=== PATIENT | female | born 1945 | race African-American/Black ===

== ENCOUNTER 2019-02-17 18:42 | Emergency (ER) | payer MEDICARE, MEDICAID ==
[~2019-02-17] VITALS: Ht 162.6 cm; Wt 60.0 kg
[2019-02-17 18:43] VITALS: BP 132/76
[2019-02-17] MEDS ORDERED: IBUPROFEN 400MG TABLET PO ONE (20:15)
== END 2019-02-17 23:37 | disposition home or self-care (01) ==
LOC: ER 18:42
DX: S20.211A Contusion of right front wall of thorax, initial encounter (principal); F17.210 Nicotine dependence, cigarettes, uncomplicated; W22.8XXA Striking against or struck by other objects, initial encounter; Y93.89 Activity, other specified; Y92.89 Other specified places as the place of occurrence of the external cause; Y99.8 Other external cause status
CPT/HCPCS: 71101; 72170; 99283

== ENCOUNTER 2021-04-18 15:33 | Inpatient (IN) | payer MEDICARE, MEDICAID ==
[~2021-04-18] VITALS: Ht 162.6 cm; Wt 56.3 kg
[2021-04-18] MEDS ORDERED: IOHEXOL-350 100 ML BOTTLE ONE (16:47)
[2021-04-18 17:53] LABS: BASOPHILS % 0.5 % (0.0-2.0); EOSINOPHILS % 0.4 % (0.0-5.0); HEMATOCRIT. 39.4 % (36.0-48.0); HEMOGLOBIN. 13.2 g/dL (12.0-16.0); MEAN CORPUSCULAR HEMOGLOBIN 30.9 pg (28.0-32.0); MEAN CORPUSCULAR VOLUME 92.1 fL (81.0-99.0); MEAN PLATELET VOLUME 7.2 fl (7.4-10.4); NEUTROPHILS % 70.1 % (40.0-76.0); PLATELET 291 x1000/uL (130-400); RED BLOOD CELL COUNT 4.28 mill/uL (4.2-5.4); RED CELL DISTRIBUTION WIDTH 13.2 % (11.6-14.6)
[2021-04-18 17:59] LABS: CHLORIDE 107 mEq/L (98-107)
[2021-04-18 18:04] LABS: ETHANOL BLOOD < 10 mg/dL
[2021-04-18 18:09] LABS: CREATINE KINASE 168 IU/L (26-192)
[2021-04-18] MEDS ORDERED: SODIUM CHLORIDE 0.9% 500 ML IV ONE (19:00)
[2021-04-18 20:16] LABS: CLARITY URINE CLEAR (CLEAR); COLOR URINE YELLOW (YELLOW); KETONES URINE NEGATIVE (NEGATIVE); LEUKOCYTE ESTERASE URINE 1+ (NEGATIVE); NITRITE URINE POSITIVE (NEGATIVE); OCCULT BLOOD URINE TRACE (NEGATIVE); PH URINE 7.5 (4.5-8.0); PROTEIN URINE NEGATIVE (NEGATIVE); SPECIFIC GRAVITY URINE 1.035 (1.005-1.030); UROBILINOGEN URINE 0.2 E.U./dL (0.2-1.0)
[2021-04-18] MEDS ORDERED: CEFTRIAXONE 1 G PREMIX 50 ML IV ONE (20:30)
[2021-04-18 20:54] LABS: *AMPHETAMINES SCREEN URINE NEGATIVE (NEGATIVE); *BARBITURATES SCREEN URINE NEGATIVE (NEGATIVE); *BENZODIAZEPINES SCREEN URINE NEGATIVE (NEGATIVE)
[2021-04-18 20:55] LABS: *COCAINE SCREEN URINE NEGATIVE (NEGATIVE); CANNABINOID URINE SCREEN NEGATIVE (NEGATIVE); METHADONE URINE SCREEN NEGATIVE (NEGATIVE); OPIATES URINE SCREEN NEGATIVE (NEGATIVE); PHENCYCLIDINE URINE SCREEN NEGATIVE (NEGATIVE)
[2021-04-19] MEDS ORDERED: MAGNESIUM/ALUMINUM HYDROXIDE/SIMETHICONE 30ML UDC PO PRN
[2021-04-19] MEDS ORDERED: ONDANSETRON HCL 4MG/2ML INJ IV PRN
[2021-04-19] MEDS ORDERED: HYDROCODONE/ACETAMINOPHEN 5/325MG TABLET PO PRN
[2021-04-19] MEDS ORDERED: CLONIDINE 0.1MG TABLET PO PRN
[2021-04-19] MEDS ORDERED: ACETAMINOPHEN 325MG TABLET PO PRN
[2021-04-19] MEDS ORDERED: IPRATROPIUM/ALBUTEROL 0.5-3(2.5)MG/3ML NEB NEB PRN
[2021-04-19] MEDS ORDERED: CEFTRIAXONE 1 G PREMIX 50 ML IV SCH
[2021-04-19] MEDS ORDERED: DOCUSATE SODIUM 100MG CAPSULE PO PRN
[2021-04-19] MEDS: ENOXAPARIN 40MG/0.4ML SYR SUBCUT SCH ×2 (00:50→23:16)
[2021-04-19 04:29] LABS: BASOPHILS % 0.3 % (0.0-2.0); EOSINOPHILS % 1.1 % (0.0-5.0); HEMATOCRIT. 41.2 % (36.0-48.0); HEMOGLOBIN. 13.8 g/dL (12.0-16.0); LYMPHOCYTES % 17.5 % (20.0-50.0); MEAN CORPUSCULAR HEMOGLOBIN 30.9 pg (28.0-32.0); MEAN CORPUSCULAR VOLUME 92.4 fL (81.0-99.0); MEAN PLATELET VOLUME 7.1 fl (7.4-10.4); MONOCYTES % 8.6 % (2.0-8.0); NEUTROPHILS % 72.5 % (40.0-76.0); PLATELET 281 x1000/uL (130-400); RED BLOOD CELL COUNT 4.46 mill/uL (4.2-5.4); RED CELL DISTRIBUTION WIDTH 13.2 % (11.6-14.6)
[2021-04-19 04:52] LABS: CREATINE KINASE MB FRACTION 3.4 ng/mL (0.5-3.6)
[2021-04-19 11:06] VITALS: BP 160/89
[2021-04-19 12:00] VITALS: BP 166/67
[2021-04-19 16:00] VITALS: BP 132/75
[2021-04-19] MEDS ORDERED: NALOXONE HCL 0.4MG/ML VIAL IV PRN (16:45)
[2021-04-19] MEDS: ASPIRIN 81MG EC TABLET PO SCH (17:46)
[2021-04-19 19:54] LABS: CREATINE KINASE 246 IU/L (26-192)
[2021-04-19 19:55] LABS: CREATINE KINASE MB FRACTION 2.5 ng/mL (0.5-3.6)
[2021-04-19 20:13] VITALS: BP 142/73
[2021-04-19 22:55] LABS: T4 FREE 1.01 ng/dL (0.76-1.46)
[2021-04-19] MEDS: ATORVASTATIN CALCIUM 20MG TABLET PO SCH (23:16)
[2021-04-19] MEDS: CEFTRIAXONE 1,000 MG in DEXTROSE 5% WATER 50 ML IV SCH (23:16)
[2021-04-19 23:21] LABS: VITAMIN B12 SERUM 851 pg/mL (211-911)
[2021-04-19 23:23] LABS: FOLIC ACID (FOLATE) SERUM > 20.00 ng/mL (>5.38)
[2021-04-19 23:56] VITALS: BP 125/68
[2021-04-20 04:00] VITALS: BP 133/66
[2021-04-20 08:00] VITALS: BP 118/78
[2021-04-20] MEDS: ASPIRIN 81MG EC TABLET PO SCH (08:34)
[2021-04-20 12:00] VITALS: BP 115/67
[2021-04-20 12:03] LABS: BASOPHILS % 0.5 % (0.0-2.0); EOSINOPHILS % 1.3 % (0.0-5.0); HEMATOCRIT. 38.9 % (36.0-48.0); LYMPHOCYTES % 20.4 % (20.0-50.0); MEAN CORPUSCULAR HEMOGLOBIN 30.4 pg (28.0-32.0); MEAN CORPUSCULAR VOLUME 91.2 fL (81.0-99.0); MEAN PLATELET VOLUME 7.3 fl (7.4-10.4); MONOCYTES % 7.5 % (2.0-8.0); NEUTROPHILS % 70.3 % (40.0-76.0); PLATELET 287 x1000/uL (130-400); RED BLOOD CELL COUNT 4.27 mill/uL (4.2-5.4); RED CELL DISTRIBUTION WIDTH 13.3 % (11.6-14.6)
[2021-04-20 16:00] VITALS: BP 155/74
[2021-04-20 20:00] VITALS: BP 127/75
[2021-04-20 21:01] VITALS: BP 110/48
[2021-04-20] MEDS: ATORVASTATIN CALCIUM 20MG TABLET PO SCH (21:51)
[2021-04-20] MEDS: CEFTRIAXONE 1,000 MG in DEXTROSE 5% WATER 50 ML IV SCH (21:52)
[2021-04-20] MEDS: ENOXAPARIN 40MG/0.4ML SYR SUBCUT SCH (21:52)
[2021-04-21] VITALS: BP 127/75
[2021-04-21 04:00] VITALS: BP 113/59
[2021-04-21 08:00] VITALS: BP 111/73
[2021-04-21] MEDS: ASPIRIN 81MG EC TABLET PO SCH (09:00)
[2021-04-21 20:00] VITALS: BP 111/67
[2021-04-21] MEDS: ATORVASTATIN CALCIUM 40MG TABLET PO SCH (21:00)
[2021-04-21] MEDS: ENOXAPARIN 40MG/0.4ML SYR SUBCUT SCH (23:10)
[2021-04-21] MEDS: CEFTRIAXONE 1,000 MG in DEXTROSE 5% WATER 50 ML IV SCH (23:10)
[2021-04-22] VITALS: BP 127/73
[2021-04-22 04:00] VITALS: BP 136/67
[2021-04-22 06:11] LABS: BASOPHILS % 0.7 % (0.0-2.0); EOSINOPHILS % 0.9 % (0.0-5.0); HEMATOCRIT. 37.3 % (36.0-48.0); HEMOGLOBIN. 12.4 g/dL (12.0-16.0); LYMPHOCYTES % 28.8 % (20.0-50.0); MEAN CORPUSCULAR HEMOGLOBIN 30.7 pg (28.0-32.0); MEAN CORPUSCULAR VOLUME 92.1 fL (81.0-99.0); MEAN PLATELET VOLUME 7.5 fl (7.4-10.4); MONOCYTES % 8.8 % (2.0-8.0); NEUTROPHILS % 60.8 % (40.0-76.0); PLATELET 296 x1000/uL (130-400); RED BLOOD CELL COUNT 4.05 mill/uL (4.2-5.4); RED CELL DISTRIBUTION WIDTH 13.2 % (11.6-14.6)
[2021-04-22 08:00] VITALS: BP 141/70
[2021-04-22] MEDS: ASPIRIN 81MG EC TABLET PO SCH (08:22)
[2021-04-22 12:00] VITALS: BP 149/78
[2021-04-22] MEDS: ENOXAPARIN 60MG/0.6ML SYR SUBCUT SCH ×2 (13:52→22:05)
[2021-04-22 16:00] VITALS: BP 130/85
[2021-04-22 20:00] VITALS: BP 130/91
[2021-04-22] MEDS: ATORVASTATIN CALCIUM 40MG TABLET PO SCH (21:00)
[2021-04-23] VITALS: BP 123/56
[2021-04-23 04:00] VITALS: BP 138/68
[2021-04-23 08:00] VITALS: BP_SYST 116; BP_SYST 118; BP_DIAS 54; BP_DIAS 65
[2021-04-23] MEDS: ASPIRIN 81MG EC TABLET PO SCH (08:32)
[2021-04-23] MEDS: ENOXAPARIN 60MG/0.6ML SYR SUBCUT SCH ×2 (08:32→20:01)
[2021-04-23 12:00] VITALS: BP 120/62
[2021-04-23] MEDS: ATORVASTATIN CALCIUM 40MG TABLET PO SCH (13:52)
[2021-04-23] MEDS ORDERED: ATORVASTATIN CALCIUM 40MG TABLET PO SCH ×2 (14:00)
[2021-04-23 20:00] VITALS: BP 125/86
[2021-04-24] VITALS: BP 107/59
[2021-04-24 04:00] VITALS: BP 130/73
[2021-04-24 08:00] VITALS: BP 112/67
[2021-04-24] MEDS: ENOXAPARIN 60MG/0.6ML SYR SUBCUT SCH ×2 (09:12→21:00)
[2021-04-24] MEDS: ASPIRIN 81MG EC TABLET PO SCH (09:12)
[2021-04-24] MEDS: ATORVASTATIN CALCIUM 40MG TABLET PO SCH (09:12)
[2021-04-24 12:00] VITALS: BP 106/62
[2021-04-24 16:00] VITALS: BP 105/60
[2021-04-24 17:25] LABS: BASOPHILS % 0.6 % (0.0-2.0); EOSINOPHILS % 2.8 % (0.0-5.0); HEMATOCRIT. 35.9 % (36.0-48.0); HEMOGLOBIN. 12.2 g/dL (12.0-16.0); LYMPHOCYTES % 25.3 % (20.0-50.0); MEAN CORPUSCULAR HEMOGLOBIN 30.7 pg (28.0-32.0); MEAN CORPUSCULAR VOLUME 90.5 fL (81.0-99.0); MEAN PLATELET VOLUME 7.4 fl (7.4-10.4); MONOCYTES % 10.6 % (2.0-8.0); NEUTROPHILS % 60.7 % (40.0-76.0); PLATELET 308 x1000/uL (130-400); RED BLOOD CELL COUNT 3.96 mill/uL (4.2-5.4); RED CELL DISTRIBUTION WIDTH 12.9 % (11.6-14.6)
[2021-04-24 20:00] VITALS: BP 92/53
[2021-04-25] VITALS: BP 97/56
[2021-04-25 04:00] VITALS: BP 111/76
[2021-04-25 08:00] VITALS: BP 119/50
[2021-04-25] MEDS: ATORVASTATIN CALCIUM 40MG TABLET PO SCH (10:22)
[2021-04-25] MEDS: ENOXAPARIN 60MG/0.6ML SYR SUBCUT SCH ×2 (10:22→21:41)
[2021-04-25] MEDS: ASPIRIN 81MG EC TABLET PO SCH (10:22)
[2021-04-25 12:00] VITALS: BP 117/63
[2021-04-25 16:00] VITALS: BP 115/68
[2021-04-25 20:00] VITALS: BP 145/47
[2021-04-26] VITALS: BP 121/48
[2021-04-26 04:00] VITALS: BP 136/48
[2021-04-26 08:00] VITALS: BP 149/78
[2021-04-26] MEDS: ATORVASTATIN CALCIUM 40MG TABLET PO SCH (08:30)
[2021-04-26] MEDS: ENOXAPARIN 60MG/0.6ML SYR SUBCUT SCH ×2 (08:30→20:14)
[2021-04-26] MEDS: ASPIRIN 81MG EC TABLET PO SCH (08:30)
[2021-04-26 12:00] VITALS: BP 146/67
[2021-04-26 16:00] VITALS: BP 125/69
[2021-04-26 20:00] VITALS: BP 128/68
[2021-04-27] VITALS: BP 143/72
[2021-04-27 04:00] VITALS: BP 138/75
[2021-04-27 08:00] VITALS: BP_SYST 150; BP_DIAS 70; BP_DIAS 90
[2021-04-27] MEDS: ENOXAPARIN 60MG/0.6ML SYR SUBCUT SCH ×2 (08:31→20:38)
[2021-04-27] MEDS: ATORVASTATIN CALCIUM 40MG TABLET PO SCH (08:31)
[2021-04-27] MEDS: ASPIRIN 81MG EC TABLET PO SCH (08:31)
[2021-04-27 12:00] VITALS: BP 106/59
[2021-04-27 16:00] VITALS: BP 133/60
[2021-04-27 20:00] VITALS: BP 102/55
[2021-04-28] VITALS: BP 119/54
[2021-04-28 04:00] VITALS: BP 118/60
[2021-04-28 08:00] VITALS: BP 139/54
[2021-04-28] MEDS: ASPIRIN 81MG EC TABLET PO SCH (08:36)
[2021-04-28] MEDS: ATORVASTATIN CALCIUM 40MG TABLET PO SCH (08:36)
[2021-04-28] MEDS: ENOXAPARIN 60MG/0.6ML SYR SUBCUT SCH ×2 (08:36→20:09)
[2021-04-28 12:00] VITALS: BP 104/82
[2021-04-28 16:00] VITALS: BP 119/50
[2021-04-28 20:00] VITALS: BP 123/68
[2021-04-29] VITALS: BP 130/57
[2021-04-29 04:00] VITALS: BP 124/75
[2021-04-29 08:00] VITALS: BP 138/75
[2021-04-29] MEDS: ENOXAPARIN 60MG/0.6ML SYR SUBCUT SCH ×2 (09:33→20:26)
[2021-04-29] MEDS: ASPIRIN 81MG EC TABLET PO SCH (09:33)
[2021-04-29] MEDS: ATORVASTATIN CALCIUM 40MG TABLET PO SCH (09:33)
[2021-04-29 12:00] VITALS: BP 130/62
[2021-04-29 16:00] VITALS: BP 110/52
[2021-04-29 20:00] VITALS: BP_SYST 100; BP_SYST 137; BP_DIAS 53; BP_DIAS 71
[2021-04-30] VITALS: BP 144/68
[2021-04-30 04:00] VITALS: BP 133/51
[2021-04-30 08:00] VITALS: BP 134/65
[2021-04-30] MEDS: ENOXAPARIN 60MG/0.6ML SYR SUBCUT SCH ×2 (08:40→22:20)
[2021-04-30] MEDS: ASPIRIN 81MG EC TABLET PO SCH (08:40)
[2021-04-30] MEDS: ATORVASTATIN CALCIUM 40MG TABLET PO SCH (08:40)
[2021-04-30 12:00] VITALS: BP 100/47
[2021-04-30 16:00] VITALS: BP 116/62
[2021-04-30 20:00] VITALS: BP 113/71
[2021-05-01] VITALS: BP 115/63
[2021-05-01 04:00] VITALS: BP 140/68
[2021-05-01 08:00] VITALS: BP 117/78
[2021-05-01 08:16] LABS: HEMATOCRIT 37.4 % (36.0-48.0); HEMOGLOBIN 12.6 g/dL (12.0-16.0); MEAN CORPUSCULAR HEMOGLOBIN 30.9 pg (28.0-32.0); PLATELET 355 x1000/uL (130-400); RED BLOOD CELL COUNT 4.07 mill/uL (4.2-5.4)
[2021-05-01 08:39] LABS: CHLORIDE 107 mEq/L (98-107)
[2021-05-01] MEDS: ATORVASTATIN CALCIUM 40MG TABLET PO SCH (09:03)
[2021-05-01] MEDS: ASPIRIN 81MG EC TABLET PO SCH (09:03)
[2021-05-01] MEDS: ENOXAPARIN 60MG/0.6ML SYR SUBCUT SCH ×2 (09:03→20:58)
[2021-05-01 12:00] VITALS: BP 144/83
[2021-05-01 15:09] LABS: 25-HYDROXY VITAMIN D3 15 ng/mL (.)
[2021-05-01 16:00] VITALS: BP 140/59
[2021-05-01 20:00] VITALS: BP 126/62
[2021-05-02] VITALS: BP 133/58
[2021-05-02 04:00] VITALS: BP 143/68
[2021-05-02 08:00] VITALS: BP 142/62
[2021-05-02] MEDS: ASPIRIN 81MG EC TABLET PO SCH (08:26)
[2021-05-02] MEDS: ATORVASTATIN CALCIUM 40MG TABLET PO SCH (08:26)
[2021-05-02] MEDS: ENOXAPARIN 60MG/0.6ML SYR SUBCUT SCH ×2 (08:26→20:02)
[2021-05-02 12:00] VITALS: BP 121/65
[2021-05-02] MEDS ORDERED: ERGOCALCIFEROL 50000UNITS CAPSULE PO SCH (12:00)
[2021-05-02 16:30] VITALS: BP 152/97
[2021-05-02 20:00] VITALS: BP 103/58
[2021-05-03] VITALS: BP 101/48
[2021-05-03 04:00] VITALS: BP 101/54
[2021-05-03 08:00] VITALS: BP 114/86
[2021-05-03] MEDS: ATORVASTATIN CALCIUM 40MG TABLET PO SCH (08:57)
[2021-05-03] MEDS: ASPIRIN 81MG EC TABLET PO SCH (08:57)
[2021-05-03] MEDS: ENOXAPARIN 60MG/0.6ML SYR SUBCUT SCH ×2 (08:58→20:44)
[2021-05-03 12:00] VITALS: BP 119/78
[2021-05-03 16:00] VITALS: BP 122/60
[2021-05-03 20:00] VITALS: BP 103/55
[2021-05-04] VITALS: BP 114/70
[2021-05-04 04:00] VITALS: BP 116/63
[2021-05-04 08:00] VITALS: BP 153/78
[2021-05-04] MEDS: ENOXAPARIN 60MG/0.6ML SYR SUBCUT SCH ×2 (09:05→21:02)
[2021-05-04] MEDS: ASPIRIN 81MG EC TABLET PO SCH (09:05)
[2021-05-04] MEDS: ATORVASTATIN CALCIUM 40MG TABLET PO SCH (09:05)
[2021-05-04 12:00] VITALS: BP 156/74
[2021-05-04 16:00] VITALS: BP 171/80
[2021-05-04] MEDS: AMLODIPINE 5MG TABLET PO SCH (18:44)
[2021-05-04 20:00] VITALS: BP 141/65
[2021-05-05] VITALS: BP 110/37
[2021-05-05 04:00] VITALS: BP 108/37
[2021-05-05 09:00] VITALS: BP 96/34
[2021-05-05] MEDS: ASPIRIN 81MG EC TABLET PO SCH (10:00)
[2021-05-05] MEDS: ENOXAPARIN 60MG/0.6ML SYR SUBCUT SCH ×2 (10:00→20:52)
[2021-05-05] MEDS: AMLODIPINE 5MG TABLET PO SCH (10:01)
[2021-05-05 12:00] VITALS: BP 100/48
[2021-05-05 16:00] VITALS: BP 107/58
[2021-05-05 20:00] VITALS: BP 122/50
[2021-05-06] VITALS: BP 123/46
[2021-05-06 04:00] VITALS: BP 103/48
[2021-05-06 08:00] VITALS: BP 103/52
[2021-05-06] MEDS: AMLODIPINE 5MG TABLET PO SCH (09:00)
[2021-05-06] MEDS: ASPIRIN 81MG EC TABLET PO SCH (09:29)
[2021-05-06] MEDS: ENOXAPARIN 60MG/0.6ML SYR SUBCUT SCH ×2 (09:29→21:22)
[2021-05-06] MEDS: ATORVASTATIN CALCIUM 40MG TABLET PO SCH (09:29)
[2021-05-06 16:00] VITALS: BP 106/50
[2021-05-06 20:00] VITALS: BP 119/67
[2021-05-07] VITALS: BP 117/55
[2021-05-07 08:00] VITALS: BP 145/58
[2021-05-07] MEDS: ASPIRIN 81MG EC TABLET PO SCH (08:51)
[2021-05-07] MEDS: ATORVASTATIN CALCIUM 40MG TABLET PO SCH (08:51)
[2021-05-07] MEDS: AMLODIPINE 5MG TABLET PO SCH (08:52)
[2021-05-07] MEDS: ENOXAPARIN 60MG/0.6ML SYR SUBCUT SCH ×2 (08:52→21:45)
[2021-05-07 12:00] VITALS: BP 141/58
[2021-05-07] MEDS ORDERED: LIP40 PO (17:05)
[2021-05-07] MEDS ORDERED: ASPI-1406 PO (17:05)
[2021-05-07] MEDS ORDERED: AMLO5TAB88 PO (17:05)
[2021-05-07] MEDS ORDERED: APIX5TAB MT (17:05)
[2021-05-07 19:48] VITALS: BP 121/84
[2021-05-07 20:00] VITALS: BP 131/48
== END 2021-05-07 22:58 | DRG 64 ==
LOC: ER 15:33 → MICUSO 20:59 → 7EST 04-19 07:32
PROVIDERS: ADMIT Internal Medicine; ATTEND Internal Medicine
PROC: 4A10X4Z Monitoring of Central Nervous Electrical Activity, External Approach (ICD-10-PCS; principal; 2021-05-07)
DX: I63.9 Cerebral infarction, unspecified (principal); G82.50 Quadriplegia, unspecified; G93.41 Metabolic encephalopathy; N39.0 Urinary tract infection, site not specified; E11.9 Type 2 diabetes mellitus without complications; E78.00 Pure hypercholesterolemia, unspecified; E78.5 Hyperlipidemia, unspecified; F20.9 Schizophrenia, unspecified; I10 Essential (primary) hypertension; R13.10 Dysphagia, unspecified; R47.01 Aphasia; R47.1 Dysarthria and anarthria; R53.81 Other malaise; I16.0 Hypertensive urgency; E55.9 Vitamin D deficiency, unspecified; Z20.822 Contact with and (suspected) exposure to COVID-19; Z79.899 Other long term (current) drug therapy; Z79.82 Long term (current) use of aspirin; Z79.01 Long term (current) use of anticoagulants
CPT/HCPCS: 36415; 70496; 70498; 70551; 80048; 80053; 80061; 80305; 80320; 80329; 81003; 82306; 82550; 82553; 82607; 82746; 83036; 84439; 84443; 84481; 84484; 85025; 85027; 87426; 92523; 92610; 93005; 93306; 97162; 97166; 97530; 97535; 99285; C1893; J0696; J1650; J7040; J7060; Q9967; G0480